=== PATIENT | female | born 1955 | race Caucasian/White ===

== ENCOUNTER 2016-05-23 11:26 | Emergency (ER) | payer OTHER ==
[~2016-05-23] VITALS: Ht 165.1 cm; Wt 113.4 kg
--- NOTE | 2016-05-23 11:51 | ED GENERAL PEDIATRIC ---
History of Present Illness General Chief Complaint: Abdominal Pain/Flank Pain Stated Complaint: ABD PAIN, BACK PAIN Source: patient Exam Limitations: no limitations Vital Signs & Intake/Output Vital Signs & Intake/Output Vital Signs Date Time Temp Pulse Resp B/P Pulse O2 O2 Flow FiO2 Ox Delivery Rate 05/23 1138 97.3 69 20 126/83 99 Room Air Allergies Coded Allergies: Sulfa (Sulfonamide Antibiotics) (Mild, UNKNOWN 05/23/16) Triage Note: RECEIVED 60 YO FEMALE C/O LEFT LOWER BACK PAIN RADIATING TO LEFT LOWER ABDOMIN, NO C/O N/V/D. PT FEELS LIKE SHE HAS TO URINATE BUT CANT. PAIN STARTED APPROX ONE HOUR AGO. Triage Nurses Notes Reviewed? yes Onset: Abrupt Duration: hour(s): Timing: recent history HPI: 05/23/16 60 Past History Travel History Traveled to [facility] past 21 day No Medical History Neurological: NONE EENT: NONE Cardiovascular: NONE Respiratory: NONE Gastrointestinal: GERD Hepatic: NONE Renal: NONE Musculoskeletal: NONE Psychiatric: NONE Endocrine: NONE Blood Disorders: NONE Cancer(s): breast cancer Surgical History Pertinent Surgical History: none, LUMPECTOMY LAPROSCOPY Psychosocial History Child's primary language? P[place] Family History Hx Contributory? No Review of Systems Review of Systems Constitutional: Denies: fever. EENTM: Denies: visual changes. Respiratory: Denies: short of breath. Cardiovascular: Denies: chest pain. GI: Reports: abdominal pain. Genitourinary: Reports: no symptoms. Musculoskeletal: Reports: back pain. Skin: Denies: rash. Neurological/Psychological: Reports: no symptoms. Hematologic/Endocrine: Reports: no symptoms. Immunologic/Allergic: Reports: no symptoms. Progress Plan of Care: Orders Procedure Date/time Status CT ABD & PELVIS W/O IV CONTRAS 05/23 1208 Active CULTURE,URINE 05/23 1157 Active URINALYSIS 05/23 1157 Active COMPREHENSIVE METABOLIC PANEL 05/23 1157 Active CBC WITHOUT DIFFERENTIAL 05/23 1157 Active Current Medications Sig/Seferino Start time Last Medication Dose Stop Time Status Admin Hydromorphone HCl 0.5 MG ONCE ONE 05/23 1215 UNVr (Dilaudid) 05/23 1216 Ketorolac 30 MG ONCE ONE 05/23 1215 AC Tromethamine 05/23 1216 (Toradol) Sodium Chloride 1,000 ML BOLUS ONE 05/23 1215 AC (Normal Saline 0.9%) 05/23 1314 Laboratory Tests 05/23/16 1200: Sodium Pending, Potassium Pending, Chloride Pending, Carbon Dioxide Pending, Anion Gap Pending, BUN Pending, Creatinine Pending, BUN/Creatinine Ratio Pending , Glucose Pending, Calcium Pending, Total Bilirubin Pending, AST Pending, ALT Pending, Alkaline Phosphatase Pending, Total Protein Pending, Albumin Pending, Globulin Pending, Albumin/Globulin Ratio Pending, CBC w Diff Pending, WBC Pending, RBC Pending, Hgb Pending, Hct Pending, MCV Pending, MCH Pending, RDW Pending, Plt Count Pending, MPV Pending, PUBS MCHC Pending Microbiology 05/23 1157 URINE ROUT: Urine Culture - ORD Departure Departure Condition: Stable Referrals: RAMONA SAUCEDO,LARRY [place] (PCP/Family) Departure Forms: Customer Survey General Discharge Information
[2016-05-23 12:15] LABS: ABSOLUTE BASOPHIL COUNT 0.1 /CUMM (0.0-0.2); ABSOLUTE EOSINOPHIL COUNT 0.1 /CUMM (0.0-0.7); ABSOLUTE GRANULOCYTE CT 4.7 /CUMM (1.4-6.5); ABSOLUTE MONOCYTE COUNT 0.4 /CUMM (0.10-0.60); BASOPHIL % 0.9 % (0.0-2.0); EOSINOPHIL % 1.2 % (0-5); GRANULOCYTE % 65.2 % (42.2-75.2); HEMATOCRIT 45.4 % (37-47); MEAN CORPUSCULAR HGB CONC 32.8 G/DL (33.0-37.0); MEAN CORPUSCULAR VOLUME 85.2 FL (81.0-99.0); PLATELET COUNT 184 /CUMM (130-400); RBC DISTRIBUTION WIDTH 14.1 % (11.5-14.5); RED BLOOD CELL CT 5.32 /CUMM (4.20-5.40); WHITE BLOOD CELL COUNT 7.3 /CUMM (4.8-10.8)
--- NOTE | 2016-05-23 12:21 | ED GENERAL ADULT ---
History of Present Illness General Chief Complaint: Abdominal Pain/Flank Pain Stated Complaint: ABD PAIN, BACK PAIN Source: patient Exam Limitations: no limitations Vital Signs & Intake/Output Vital Signs & Intake/Output Vital Signs Date Time Temp Pulse Resp B/P Pulse O2 O2 Flow FiO2 Ox Delivery Rate 05/23 1457 97.0 68 20 134/70 99 Room Air 05/23 1324 Room Air Room Air 05/23 1138 97.3 69 20 126/83 99 Room Air Allergies Coded Allergies: Sulfa (Sulfonamide Antibiotics) (Mild, UNKNOWN 05/23/16) Reconcile Medications Ciprofloxacin HCl (Cipro) 500 MG TABLET 1 TAB PO BID INFN Gluc/Jakob-MSM#1/C/Judson/Presley/Bor (Osteo Bi-Flex Caplet) 750 MG-644 MG-30 MG-1 MG- 1.5 MG TABLET 2 CAPL PO D SUPPLEMENT (Reported) Lansoprazole (Prevacid) 15 MG CAPSULE.DR 1 CAP PO DAILY ACID REFLUX (Reported ) Loratadine (Claritin) 10 MG TABLET 1 TAB PO DAILY ALLERGIES (Reported) Multivitamin (Multivitamins) 1 EACH CAPSULE 1 CAP PO D SUPPLEMENT (Reported) Ondansetron HCl (Zofran) 4 MG TABLET 1 TAB PO Q8 PRN NAUSEA Oxycodone HCl/Acetaminophen (Percocet 5-325 MG Tablet) 5 MG-325 MG TABLET 1 TAB PO BID PRN PAIN Triage Note: RECEIVED 60 YO FEMALE C/O LEFT LOWER BACK PAIN RADIATING TO LEFT LOWER ABDOMIN, NO C/O N/V/D. PT FEELS LIKE SHE HAS TO URINATE BUT CANT. PAIN STARTED APPROX ONE HOUR AGO. Triage Nurses Notes Reviewed? yes Onset: Abrupt Duration: hour(s): Timing: recent history HPI: 05/23/16 12:14 PM 60-year-old female presents to the emergency department for sudden onset of left flank pain. The patient states she was in her usual state of health until earlier today when she developed a sudden onset of severe left-sided flank pain. The onset of the symptoms were abrupt, the duration was just today, the severity is significant as her symptoms required her to come to the emergency department for care. She has associated vomiting. No fever. Past History Travel History Traveled to [place] past 21 day No Medical History Any Pertinent Medical History? see below for history Neurological: NONE EENT: NONE Cardiovascular: NONE Respiratory: NONE Gastrointestinal: GERD Hepatic: NONE Renal: NONE Musculoskeletal: NONE Psychiatric: NONE Endocrine: NONE Blood Disorders: NONE Cancer(s): breast cancer Surgical History Surgical History: lumpectomy,laparoscopy Psychosocial History What is your primary language Slovak Tobacco Use: Quit >30 days ago Family History Hx Contributory? No Review of Systems Review of Systems Constitutional: Denies: fever. EENTM: Denies: visual changes. Respiratory: Denies: short of breath. Cardiovascular: Denies: chest pain. GI: Reports: abdominal pain, nausea, vomiting. Genitourinary: Denies: dysuria. Musculoskeletal: Reports: back pain. Skin: Denies: rash. Neurological/Psychological: Reports: no symptoms. Hematologic/Endocrine: Denies: bruising, bleeding. Physical Exam Physical Exam General Appearance: well developed/nourished, alert, awake, anxious, moderate distress Head: atraumatic, normal appearance Eyes: Bilateral: normal appearance, PERRL, EOMI. Ears, Nose, Throat: normal pharynx, normal ENT inspection Neck: normal inspection, supple, full range of motion Respiratory: normal breath sounds, chest non-tender, no respiratory distress Cardiovascular: regular rate/rhythm Peripheral Pulses: 4+ radial (R), 4+ radial (L) Gastrointestinal: soft, non-tender Back: CVA tenderness (L) Extremities: normal range of motion Neurologic/Psych: no motor/sensory deficits, awake, alert, oriented x 3 Skin: intact, normal color, warm/dry Core Measures ACS in differential dx? No CVA/TIA Diagnosis: No Severe Sepsis Present: No Septic Shock Present: No Progress Differential Diagnoses I considered the following diagnoses in my evaluation of the patient: [ Ureterolithiasis, diverticulitis, pyelonephritis, lumbar strain, lumbar radiculopathy] Plan of Care: Orders Procedure Date/time Status Add-on Test (ER Only) 05/23 1342 Active CULTURE,URINE 05/23 1157 Active URINALYSIS 05/23 1157 Complete COMPREHENSIVE METABOLIC PANEL 05/23 1157 Complete CBC WITHOUT DIFFERENTIAL 05/23 1157 Complete Laboratory Tests 05/23/16 1307: Urinalysis LIGHT H, Urine Color YEL, Urine Clarity HAZY H, Urine pH 6.0, Ur Specific [place] >= 1.030, Urine Protein 30 H, Urine Ketones 40 H, Urine Nitrite NEG, Urine Bilirubin NEG, Urine Urobilinogen 0.2, Ur Leukocyte Esterase NEG, Ur Microscopic SEDIMENT EXAMINED, Urine RBC 15-25 H, Urine WBC 10-15 H, Ur Epithelial Cells FEW, Urine Crystals 3+ CA OX H, Hyaline Casts 1-3 H, Granular Casts RARE H, Urine Mucus MANY H, Urine Hemoglobin MOD H, Urine Glucose NEG 05/23/16 1200: Anion Gap 14, Estimated GFR > 60, BUN/Creatinine Ratio 16.7, Glucose 139 H, Calcium 9.4, Total Bilirubin 0.6, AST 22, ALT 33, Alkaline Phosphatase 84, Total Protein 7.1, Albumin 4.3, Globulin 2.8, Albumin/Globulin Ratio 1.5, CBC w Diff NO MAN DIFF REQ, RBC 5.32, MCV 85.2, MCH 28.0, RDW 14.1, MPV 10.0, Gran % 65.2, Lymphocytes % 27.3, Monocytes % 5.4, Eosinophils % 1.2, Basophils % 0.9, Absolute Granulocytes 4.7, Absolute Lymphocytes 2.0, Absolute Monocytes 0.4, Absolute Eosinophils 0.1, Absolute Basophils 0.1, PUBS MCHC 32.8 L Microbiology 05/23 1307 URINE ROUT: Urine Culture - RECD Initial ED EKG: none Departure Departure Disposition: STILL A PATIENT Condition: Stable Clinical Impression Primary Impression: Flank pain Referrals: RAMONA SAUCEDO,LARRY [place] Departure Forms: Customer Survey General Discharge Information Prescriptions: Current Visit Scripts Ciprofloxacin HCl (Cipro) 1 TAB PO BID #20 TAB Oxycodone HCl/Acetaminophen (Percocet 5-325 MG Tablet) 1 TAB PO BID PRN PAIN #10 TAB Ondansetron HCl (Zofran) 1 TAB PO Q8 PRN NAUSEA #5 TAB Comments 05/23/16 The patient was treated with IV fluids, IV Toradol, and IV Dilaudid. Also IV Zofran. CT scan of the abdomen and pelvis was ordered and labs and urine were sent. 05/23/16 2 PM Her abdominal pain completely resolved. CT scan shows diverticulosis without diverticulitis. No evidence of stone. Urine does show pyuria and hematuria. I will empirically treat her with antibiotics and have her follow-up with the urologist. She will return to the emergency department if worse. PATIENT: BRIT LAWRENCE PRESENT AGE: 60 PATIENT ACCOUNT NO: [id number] : 55 LOCATION: [facility] ORDERING PHYSICIAN: PHIL HENSON DO SERVICE DATE: 05/23/16-1208 EXAM TYPE: CAT - CT ABD & PELVIS W/O IV CONTRAS Addendum: IMPRESSION: Scattered sigmoid diverticulosis without diverticulitis. Rest of the colon and small bowel loops are unremarkable. Rest of the abdomen and pelvis appears unremarkable. Addendum Signed by: RENEE VANN MD 05/23/16 1310 EXAMINATION: CT ABDOMEN AND PELVIS WITHOUT CONTRAST CLINICAL INFORMATION: Left lower quadrant pain and left flank pain. COMPARISON: None. TECHNIQUE: Multidetector volumetric imaging was performed from the superior aspect of the liver through the pubic symphysis. Sagittal and coronal reformatted images were obtained on the technologist's workstation. DLP: 1318 mGy-cm. FINDINGS: LUNG BASES: Lay likely atelectatic changes right middle lobe and lingula as noted the heart size is normal. LIVER, GALLBLADDER, AND BILIARY TREE: The liver is normal in size, shape, and attenuation. No focal hepatic lesion or biliary ductal dilatation is present. The gallbladder is unremarkable with no evidence of radiopaque gallstones, gallbladder wall thickening, or obvious pericholecystic inflammatory changes. PANCREAS: Unremarkable. SPLEEN: Unremarkable. ADRENAL GLANDS: Unremarkable. KIDNEYS AND URETERS: The kidneys are normal in size, shape, and attenuation. No hydronephrosis, hydroureter, or calculi seen. No perinephric stranding. BLADDER: Unremarkable. GASTROINTESTINAL TRACT: There is scattered sigmoid diverticulosis. The rest of the colon is nondistended and unremarkable. The small bowel loops are normal. Appendix is not well visualized. ABDOMINAL WALL: No significant hernia is appreciated. LYMPH NODES: Normal. VASCULAR: Unremarkable. PELVIC VISCERA: The uterus is anteverted. There is no adnexal mass or inflammatory process. There is no free fluid. No abnormal lymph nodes seen.. OSSEOUS STRUCTURES: There is bilateral L3-L4, L4-L5 and L5-S1 facet joint arthropathy there are degenerative disc changes with loss of disc height L3-L4 and L2-L3 disc levels. IMPRESSION: Scattered sigmoid diverticulitis without any diverticulitis. Rest of the colon an small bowel loops unremarkable. Rest of the abdomen and pelvis appears unremarkable. DICTATED BY: RENEE VANN MD DATE/TIME DICTATED:05/23/161237 DIRECTOR OF PARKS AND RECREATION:RADHA DATE/TIME TRANSCRIBED:05/23/161237 CONFIDENTIAL, DO NOT COPY WITHOUT APPROPRIATE AUTHORIZATION. <Electronically signed in Other Vendor System> SIGNED BY: SOO SAUCEDO,RENEE 05/23/16 1252 Critical Care Note Critical Care Note Critical Care Time: non-applicable
--- NOTE | 2016-05-23 12:52 | CT SCAN REPORT ---
EXAMINATION: CT ABDOMEN AND PELVIS WITHOUT CONTRAST CLINICAL INFORMATION: Left lower quadrant pain and left flank pain. COMPARISON: None. TECHNIQUE: Multidetector volumetric imaging was performed from the superior aspect of the liver through the pubic symphysis. Sagittal and coronal reformatted images were obtained on the technologist's workstation. DLP: 1318 mGy-cm. FINDINGS: LUNG BASES: Lay likely atelectatic changes right middle lobe and lingula as noted the heart size is normal. LIVER, GALLBLADDER, AND BILIARY TREE: The liver is normal in size, shape, and attenuation. No focal hepatic lesion or biliary ductal dilatation is present. The gallbladder is unremarkable with no evidence of radiopaque gallstones, gallbladder wall thickening, or obvious pericholecystic inflammatory changes. PANCREAS: Unremarkable. SPLEEN: Unremarkable. ADRENAL GLANDS: Unremarkable. KIDNEYS AND URETERS: The kidneys are normal in size, shape, and attenuation. No hydronephrosis, hydroureter, or calculi seen. No perinephric stranding. BLADDER: Unremarkable. GASTROINTESTINAL TRACT: There is scattered sigmoid diverticulosis. The rest of the colon is nondistended and unremarkable. The small bowel loops are normal. Appendix is not well visualized. ABDOMINAL WALL: No significant hernia is appreciated. LYMPH NODES: Normal. VASCULAR: Unremarkable. PELVIC VISCERA: The uterus is anteverted. There is no adnexal mass or inflammatory process. There is no free fluid. No abnormal lymph nodes seen.. OSSEOUS STRUCTURES: There is bilateral L3-L4, L4-L5 and L5-S1 facet joint arthropathy there are degenerative disc changes with loss of disc height L3-L4 and L2-L3 disc levels. IMPRESSION: Scattered sigmoid diverticulitis without any diverticulitis. Rest of the colon an small bowel loops unremarkable. Rest of the abdomen and pelvis appears unremarkable.
[2016-05-23] MEDS ORDERED: CLARITIN10 M1 PO (13:22)
[2016-05-23] MEDS ORDERED: PREVACID15 M1 PO (13:22)
[2016-05-23] MEDS ORDERED: MULTIVITAMINS1 EAC8 PO (13:23)
[2016-05-23] MEDS ORDERED: OSTEO BI-FLEX1 EAC2 PO (13:24)
[2016-05-23] MEDS ORDERED: PERCOCET 5-3251 EACH PO (14:47)
[2016-05-23] MEDS ORDERED: ZOFRAN4 M2 PO (14:47)
[2016-05-23] MEDS ORDERED: CIPRO500 M1 PO (14:47)
[2016-05-23 14:57] VITALS: BP 134/70
== END 2016-05-23 14:57 ==
LOC: ERH 11:26
PROVIDERS: Emergency Medicine
DX: R10.9 Unspecified abdominal pain (principal)
CPT/HCPCS: 74176; 81001; 87086; 96374; 96375; J1885; J2405